=== PATIENT | male | born 1935 | race Caucasian/White ===

== ENCOUNTER 2017-03-27 05:00 | Emergency (ER) | payer MEDICARE, OTHER ==
[2017-03-27] VITALS (7 sets, daily range): BP systolic 80–125; BP diastolic 50–62; PULSE 52–71; RESP 16–20; TEMP 97.6; O2SAT 95–99
[~2017-03-27] VITALS: Ht 177.8 cm; Wt 105.0 kg
[~2017-03-27 05:00] MED LIST: ATOR20TA42 PO; LORTA5 PO; RIVA15 PO; ST J81CH PO
[2017-03-27] MEDS ORDERED: LIPI20TA PO (05:12)
[2017-03-27] MEDS ORDERED: XARE15TA PO (05:12)
[2017-03-27] MEDS ORDERED: SODIUM CHLORID 0.9% 500 ML INJ 500 ML IV ONE ×2 (06:00→07:45)
[2017-03-27] MEDS ORDERED: SODIUM CHLORIDE 0.9% FLUSH 10 ML FLUSH IV FLUSH PRN (06:00)
[2017-03-27] MEDS ORDERED: ONDANSETRON HCL 4 MG/2 ML VIAL IVP ONE (06:00)
[2017-03-27 06:25] LABS: AUTOMATED NEUTROPHIL # 7.8 TH/MM3 (1.8-7.7); BASOPHIL % 0.2 % (0.0-2.0); EOSINOPHIL # 0.2 TH/MM3 (0-0.4); EOSINOPHIL % 1.6 % (0.0-4.0); HEMATOCRIT 41.1 % (39.0-51.0); HEMO FLAGS DIFF FINAL; LYMPH % 10.6 % (9.0-44.0); MEAN CELL VOLUME 92.9 FL (80.0-100.0); MEAN CORPUSCULAR HGB CONC 33.4 % (32.0-36.0); MONO % 5.5 % (0.0-8.0); NEUT % 82.1 % (16.0-70.0); PLATELET COUNT 152 TH/MM3 (150-450); RED BLOOD COUNT 4.42 MIL/MM3 (4.50-5.90); RED CELL DISTRIBUTION WIDTH 14.2 % (11.6-17.2); WHITE BLOOD COUNT 9.5 TH/MM3 (4.0-11.0)
[2017-03-27 06:29] LABS: APTT (PATIENT) 27.8 SEC (24.3-30.1); INTERNATIONAL NORMALIZED RATIO 1.2 RATIO; PROTHROMBIN TIME - PATIENT 12.8 SEC (9.8-11.6)
[2017-03-27 06:45] LABS: ALKALINE PHOSPHATASE 45 U/L (45-117); TOTAL BILIRUBIN ADULT 0.9 MG/DL (0.2-1.0)
[2017-03-27 07:10] LABS: ALT (GPT) 28 U/L (12-78); ANION GAP 8 MEQ/L (5-15); AST (GOT) 48 U/L (15-37); BICARBONATE 23.1 MEQ/L (21.0-32.0); BLOOD UREA NITROGEN 24 MG/DL (7-18); CHLORIDE 110 MEQ/L (98-107); GLOMERULAR FILTRATION RATE 56 ML/MIN (>89); SODIUM (NA) 141 MEQ/L (136-145)
[2017-03-27 07:13] LABS: POTASSIUM 4.9 MEQ/L (3.5-5.1)
--- NOTE | 2017-03-27 07:17 | PD ---
HPI Chief Complaint: GI Complaint Time Seen by Provider: 05:42 Travel History International Travel<30 days: No Contact w/Intl Traveler<30days: No Traveled to known affect area: No History of Present Illness HPI Patient is a 82 year old male who comes in complaining of nausea, diarrhea, and near syncope. He says he woke up feeling nauseous and had an episode of diarrhea. He says he then became very sweaty and he felt like he was going to pass out. He says he went down on his hands and knees, but never lost consciousness. He says he still feels queezy, but is feeling a little better. He says he is currently doing a "detox" with his where he is taking supplements every day. 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) Endocrine: No Genitourinary: No Hepatitis: No Hiatal Hernia: No Hypertension: Yes Immune Disorder: No Musculoskeletal: Yes (ARTHRITIS) Neurologic: No Psychiatric: No Reproductive: No Respiratory: Yes (COPD) Thyroid Disease: No Tetanus Vaccination: Unknown Influenza Vaccination: No Past Surgical History Abdominal Surgery: No AICD: No Body Medical Devices: CADIAC STENT Cardiac Surgery: Yes (STENT) Coronary Artery Bypass Graft: No Ear Surgery: No Endocrine Surgery: No Eye Surgery: No Genitourinary Surgery: No Joint Replacement: No Oral Surgery: No Pacemaker: No Thoracic Surgery: No Other Surgery: Yes (COLONOSCOPY) Family History Family Myocardial Infarction: Yes (1st cousins ) Social History Alcohol Use: No Tobacco Use: No (quit 35 yrs ago) Substance Use: No Allergies-Medications (Allergen,Severity, Reaction): Coded Allergies: Sulfa (Verified Allergy, Severe, 03/27/17) Reported Meds & Prescriptions Reported Meds & Active Scripts Active Lomotil (Diphenoxylate-Atropine) 2.5-0.025 Mg Tab 1 Tab PO Q6H PRN Zofran Odt (Ondansetron Odt) 4 Mg Tab 4 Mg SL Q6HR PRN Reported Lipitor (Atorvastatin Calcium) 20 Mg Tab 20 Mg PO HS Xarelto (Rivaroxaban) 15 Mg Tab 15 Mg PO DAILY Review of Systems Except as stated in HPI: all other systems reviewed are Neg General / Constitutional: No: Fever HENT: Positive: Lightheadedness Cardiovascular: No: Chest Pain or Discomfort Respiratory: No: Shortness of Breath Gastrointestinal: Positive: Nausea, Diarrhea, No: Vomiting, Abdominal Pain Genitourinary: No: Dysuria Musculoskeletal: No: Edema Skin: No Rash, No Change in Pigmentation Neurologic: Positive: Weakness, Dizziness Physical Exam Narrative GENERAL: Awake and alert, in no acute distress. SKIN: Focused skin assessment warm/dry. HEAD: Atraumatic. Normocephalic. EYES: Pupils equal and round. No scleral icterus. Extraocular movements intact. ENT: Mucous membranes pink and moist. NECK: Trachea midline. No JVD. CARDIOVASCULAR: Regular rate and rhythm. No murmur appreciated. RESPIRATORY: No accessory muscle use. Clear to auscultation. Breath sounds equal bilaterally. GASTROINTESTINAL: Abdomen soft, non-tender, nondistended. MUSCULOSKELETAL: No obvious deformities. No clubbing. No cyanosis. No edema. NEUROLOGICAL: Awake and alert. No obvious cranial nerve deficits. Motor grossly within normal limits. Normal speech. PSYCHIATRIC: Appropriate mood and affect; insight and judgment normal. Data Data Last Documented VS Vital Signs Date Time Temp Pulse Resp B/P Pulse Ox O2 Delivery O2 Flow Rate FiO2 03/27/17 07:11 16 03/27/17 07:11 52 111/62 97 Room Air 03/27/17 05:02 97.6 Orders Complete Blood Count With Diff (03/27/17 05:50) Comprehensive Metabolic Panel (03/27/17 05:50) Lipase (03/27/17 05:50) Prothrombin Time / Inr (Pt) (03/27/17 05:50) Act Partial Throm Time (Ptt) (03/27/17 05:50) Urinalysis - C+S If Indicated (03/27/17 05:50) Ua Includes Microscopic (03/27/17 05:50) Ct Abd/Pel W Iv Contrast(Rout) (03/27/17 05:50) Iv Access Insert/Monitor (03/27/17 05:50) Ecg Monitoring (03/27/17 05:50) Oximetry (03/27/17 05:50) Ondansetron Inj (Zofran Inj) (03/27/17 06:00) Sodium Chloride 0.9% Flush (Ns Flush) (03/27/17 06:00) Electrocardiogram (03/27/17 05:50) Troponin I (03/27/17 05:50) Sodium Chlorid 0.9% 500 Ml Inj (Ns 500 M (03/27/17 06:00) Iohexol 350 Inj (Omnipaque 350 Inj) (03/27/17 07:33) Sodium Chlorid 0.9% 500 Ml Inj (Ns 500 M (03/27/17 07:45) Labs Laboratory Tests Test 03/27/17 03/27/17 05:40 07:05 White Blood Count 9.5 TH/MM3 Red Blood Count 4.42 MIL/MM3 Hemoglobin 13.7 GM/DL Hematocrit 41.1 % Mean Corpuscular Volume 92.9 FL Mean Corpuscular Hemoglobin 31.0 PG Mean Corpuscular Hemoglobin 33.4 % Concent Red Cell Distribution Width 14.2 % Platelet Count 152 TH/MM3 Mean Platelet Volume 8.9 FL Neutrophils (%) (Auto) 82.1 % Lymphocytes (%) (Auto) 10.6 % Monocytes (%) (Auto) 5.5 % Eosinophils (%) (Auto) 1.6 % Basophils (%) (Auto) 0.2 % Neutrophils # (Auto) 7.8 TH/MM3 Lymphocytes # (Auto) 1.0 TH/MM3 Monocytes # (Auto) 0.5 TH/MM3 Eosinophils # (Auto) 0.2 TH/MM3 Basophils # (Auto) 0.0 TH/MM3 CBC Comment DIFF FINAL Differential Comment Prothrombin Time 12.8 SEC Prothromb Time International 1.2 RATIO Ratio Activated Partial 27.8 SEC Thromboplast Time Sodium Level 141 MEQ/L Potassium Level 4.9 MEQ/L Chloride Level 110 MEQ/L Carbon Dioxide Level 23.1 MEQ/L Anion Gap 8 MEQ/L Blood Urea Nitrogen 24 MG/DL Creatinine 1.24 MG/DL Estimat Glomerular Filtration 56 ML/MIN Rate Random Glucose 102 MG/DL Calcium Level 9.0 MG/DL Total Bilirubin 0.9 MG/DL Aspartate Amino Transf 48 U/L (AST/SGOT) Alanine Aminotransferase 28 U/L (ALT/SGPT) Alkaline Phosphatase 45 U/L Troponin I 0.02 NG/ML Total Protein 6.8 GM/DL Albumin 3.6 GM/DL Lipase 93 U/L Urine Color YELLOW Urine Turbidity CLEAR Urine pH 5.5 Urine Specific [place] 1.017 Urine Protein NEG mg/dL Urine Glucose (UA) NEG mg/dL Urine Ketones NEG mg/dL Urine Occult Blood NEG Urine Nitrite NEG Urine Bilirubin NEG Urine Urobilinogen LESS THAN 2.0 MG/DL Urine Leukocyte Esterase TRACE Urine RBC 1 /hpf Urine WBC 1 /hpf Urine Hyaline Casts 4 /lpf Urine Mucus FEW /lpf Microscopic Urinalysis Comment CULT NOT INDICATED MDM Medical Decision Making Medical Screen Exam Complete: Yes Emergency Medical Condition: Yes Medical Record Reviewed: Yes Interpretation(s) ECG shows normal sinus rhythm at 67, no ST elevation or depression, left anterior fascicular block. Differential Diagnosis Dehydration versus electrolyte abnormality versus ACS versus gastroenteritis Narrative Course Patient is an 82-year-old male comes in complaining of nausea, diarrhea, near syncope. Exam shows no acute abnormalities, no neurologic abnormalities. IV established, labs sent. Patient connected to the manager english. While patient was here, he had another episode where he became diaphoretic and he dropped his blood pressure. Patient given IV fluids. Given Zofran. Blood pressure improved as did symptoms. Patient signed out to Dr. Hirsch to follow up testing and disposition. Scripts Diphenoxylate-Atropine (Lomotil)2.5-0.025 Mg Tab1 Tab PO Q6H PRN (DIARRHEA) #10 TAB Ref 0 Prov:Jordon Hirsch MD 03/27/17 Ondansetron Odt (Zofran Odt)4 Mg Tab4 Mg SL Q6HR PRN (Nausea/Vomiting) #10 TAB Prov:Jordon Hirsch MD 03/27/17 Condition: Stable Rozina Aragon MD March 27, 2017 07:17
[2017-03-27] MEDS ORDERED: IOHEXOL 350 MG/ML 10 ML VIAL (for RAD DIAG) IV ONE (07:33)
[2017-03-27 07:34] LABS: BLOOD, URINE NEG (NEG); COMMENT (UR) CULT NOT INDICATED; CULTURE IF INDICATED CULT NOT INDICATED; GLUCOSE,URINE NEG (NEG); HYALINE CAST, URINE 4 /lpf (RARE); KETONE, URINE NEG (NEG); MUCUS URINE FEW /lpf (OCC); NITRITE,URINE NEG (NEG); PH, URINE 5.5 (5.0-8.5); URINE COLOR YELLOW (YELLW/STRAW)
--- NOTE | 2017-03-27 07:46 | RADRPT ---
EXAM DATE/TIME: 03/27/2017 07:30 [facility] COMPARISON: CT ABDOMEN & PELVIS W CONTRAST, June 09, 2016, 15:08. INDICATIONS : Nausea, vomiting and diarrhea. IV CONTRAST: 93 cc Omnipaque 350 (iohexol) IV ORAL CONTRAST: No oral contrast ingested. RADIATION DOSE: 16.73 CTDIvol (mGy) MEDICAL HISTORY : Chronic obstructive pulmonary disease. Cardiovascular disease Colon mass. Skin cancer. SURGICAL HISTORY : Cardiac stent. ENCOUNTER: Initial ACUITY: 1 day PAIN SCALE: 0/10 LOCATION: Bilateral abdomen TECHNIQUE: Volumetric scanning of the abdomen and pelvis was performed. Using automated exposure control and ad justment of the mA and/or kV according to patient size, radiation dose was kept as low as reasonably achievable to obtain optimal diagnostic quality images. FINDINGS: LOWER LUNGS: The visualized lower lungs are clear. LIVER: Homogeneous density without lesion. There is no dilation of the biliary tree. Single calcified galls tone. Subcentimeter low-density is in the left lobe. SPLEEN: Normal size without lesion. PANCREAS: Within normal limits. KIDNEYS: Normal in size and shape. There is no mass, stone or hydronephrosis. ADRENAL GLANDS: Within normal limits. VASCULAR: There is no aortic aneurysm. BOWEL/MESENTERY: Diverticulosis of the colon without diverticulitis. Mildly prominent proximal small bowel loops invo lving the proximal jejunum without definite obstruction. There is no free intraperitoneal air or flui d. Small hiatal hernia. ABDOMINAL WALL: Within normal limits. RETROPERITONEUM: There is no lymphadenopathy. BLADDER: No wall thickening or mass. Small bladder diverticulum projecting off the posterior lateral right asp ect of the bladder. REPRODUCTIVE: Within normal limits. INGUINAL: There is no lymphadenopathy or hernia. MUSCULOSKELETAL: Within normal limits for patient age. CONCLUSION: 1. Mildly prominent proximal jejunal small bowel loops without obstruction. 2. Diverticulosis without diverticulitis. 3. Small bladder diverticulum. 4. Subcentimeter hepatic low-densities, likely benign. 5. Cholelithiasis. 6. Small hiatal hernia. Siddharth Chino MD on March 27, 2017 at 7:40 Board Certified Radiologist. This report was verified electronically.
[2017-03-27] MEDS ORDERED: ZOFR4TAB3 SL (08:12)
[2017-03-27] MEDS ORDERED: LOMO2.5T PO (08:12)
--- NOTE | 2017-03-27 08:12 | PD ---
Physical Exam Narrative Patient was seen by ED physician and signed out to me. Data Data Last Documented VS Vital Signs Date Time Temp Pulse Resp B/P Pulse Ox O2 Delivery O2 Flow Rate FiO2 03/27/17 07:11 16 03/27/17 07:11 52 111/62 97 Room Air 03/27/17 05:02 97.6 Orders Complete Blood Count With Diff (03/27/17 05:50) Comprehensive Metabolic Panel (03/27/17 05:50) Lipase (03/27/17 05:50) Prothrombin Time / Inr (Pt) (03/27/17 05:50) Act Partial Throm Time (Ptt) (03/27/17 05:50) Urinalysis - C+S If Indicated (03/27/17 05:50) Ua Includes Microscopic (03/27/17 05:50) Ct Abd/Pel W Iv Contrast(Rout) (03/27/17 05:50) Iv Access Insert/Monitor (03/27/17 05:50) Ecg Monitoring (03/27/17 05:50) Oximetry (03/27/17 05:50) Ondansetron Inj (Zofran Inj) (03/27/17 06:00) Sodium Chloride 0.9% Flush (Ns Flush) (03/27/17 06:00) Electrocardiogram (03/27/17 05:50) Troponin I (03/27/17 05:50) Sodium Chlorid 0.9% 500 Ml Inj (Ns 500 M (03/27/17 06:00) Iohexol 350 Inj (Omnipaque 350 Inj) (03/27/17 07:33) Sodium Chlorid 0.9% 500 Ml Inj (Ns 500 M (03/27/17 07:45) Labs Laboratory Tests Test 03/27/17 03/27/17 05:40 07:05 White Blood Count 9.5 TH/MM3 Red Blood Count 4.42 MIL/MM3 Hemoglobin 13.7 GM/DL Hematocrit 41.1 % Mean Corpuscular Volume 92.9 FL Mean Corpuscular Hemoglobin 31.0 PG Mean Corpuscular Hemoglobin 33.4 % Concent Red Cell Distribution Width 14.2 % Platelet Count 152 TH/MM3 Mean Platelet Volume 8.9 FL Neutrophils (%) (Auto) 82.1 % Lymphocytes (%) (Auto) 10.6 % Monocytes (%) (Auto) 5.5 % Eosinophils (%) (Auto) 1.6 % Basophils (%) (Auto) 0.2 % Neutrophils # (Auto) 7.8 TH/MM3 Lymphocytes # (Auto) 1.0 TH/MM3 Monocytes # (Auto) 0.5 TH/MM3 Eosinophils # (Auto) 0.2 TH/MM3 Basophils # (Auto) 0.0 TH/MM3 CBC Comment DIFF FINAL Differential Comment Prothrombin Time 12.8 SEC Prothromb Time International 1.2 RATIO Ratio Activated Partial 27.8 SEC Thromboplast Time Sodium Level 141 MEQ/L Potassium Level 4.9 MEQ/L Chloride Level 110 MEQ/L Carbon Dioxide Level 23.1 MEQ/L Anion Gap 8 MEQ/L Blood Urea Nitrogen 24 MG/DL Creatinine 1.24 MG/DL Estimat Glomerular Filtration 56 ML/MIN Rate Random Glucose 102 MG/DL Calcium Level 9.0 MG/DL Total Bilirubin 0.9 MG/DL Aspartate Amino Transf 48 U/L (AST/SGOT) Alanine Aminotransferase 28 U/L (ALT/SGPT) Alkaline Phosphatase 45 U/L Troponin I 0.02 NG/ML Total Protein 6.8 GM/DL Albumin 3.6 GM/DL Lipase 93 U/L Urine Color YELLOW Urine Turbidity CLEAR Urine pH 5.5 Urine Specific [place] 1.017 Urine Protein NEG mg/dL Urine Glucose (UA) NEG mg/dL Urine Ketones NEG mg/dL Urine Occult Blood NEG Urine Nitrite NEG Urine Bilirubin NEG Urine Urobilinogen LESS THAN 2.0 MG/DL Urine Leukocyte Esterase TRACE Urine RBC 1 /hpf Urine WBC 1 /hpf Urine Hyaline Casts 4 /lpf Urine Mucus FEW /lpf Microscopic Urinalysis Comment CULT NOT INDICATED [facility] Supervised Visit with NEFTALI: No Interpretation(s) Last Impressions Abdomen/Pelvis CT 03/27/17 0550 Signed Impressions: Service Date/Time: Monday, March 27, 2017 07:30 - CONCLUSION: 1. Mildly prominent proximal jejunal small bowel loops without obstruction. 2. Diverticulosis without diverticulitis. 3. Small bladder diverticulum. 4. Subcentimeter hepatic low-densities, likely benign. 5. Cholelithiasis. 6. Small hiatal hernia. Siddharth Chino MD 8:07 AM. CBC within normal limit. CMP within normal limit. Cardiac enzymes are normal. UA is negative. Diagnosis Primary Impression: Gastroenteritis Patient Instructions: General Instructions Additional Instruction: Take medications as directed. Clear fluid today and advance diet as tolerated. Follow-up with personal physician. Return if persistent problem or worse. Med/Other Pt SpecificInfo: Prescription(s) given Scripts Diphenoxylate-Atropine (Lomotil)2.5-0.025 Mg Tab1 Tab PO Q6H PRN (DIARRHEA) #10 TAB Ref 0 Prov:Jordon Hirsch MD 03/27/17 Ondansetron Odt (Zofran Odt)4 Mg Tab4 Mg SL Q6HR PRN (Nausea/Vomiting) #10 TAB Prov:Jordon Hirsch MD 03/27/17 Disposition: 01 DISCHARGE HOME Condition: Stable Jordon Hirsch MD March 27, 2017 08:12
--- NOTE | 2017-03-27 14:18 | EKG ---
Date Performed: 03/27/2017 Time Performed: 05:19:49 PTAGE: 82 years EKG: Sinus rhythm PATTERN CONSISTENT WITH PULMONARY DISEASE LEFT ANTERIOR FASCICULAR BLOCK ABNORMAL ECG PREVIOUS TRACING : 06/28/2015 21.58 Compared to prior tracing no significant change DOCTOR: Juan R Edwards Interpretating Date/Time 03/27/2017 14:15:33
== END 2017-03-27 09:25 | disposition home or self-care (01) ==
LOC: NEPC 05:00
DX: K52.9 Noninfective gastroenteritis and colitis, unspecified (principal); I10 Essential (primary) hypertension; K57.90 Diverticulosis of intestine, part unspecified, without perforation or abscess without bleeding; N32.3 Diverticulum of bladder; K80.20 Calculus of gallbladder without cholecystitis without obstruction; K44.9 Diaphragmatic hernia without obstruction or gangrene; R94.31 Abnormal electrocardiogram [ECG] [EKG]
CPT/HCPCS: 74177; 80053; 81001; 83690; 84484; 85025; 85610; 85730; 93005; 96361; 96374; 99284; J2405; J7040; Q9967